=== PATIENT | male | born 1995 | race Caucasian/White ===

== ENCOUNTER 2018-02-24 23:09 | Emergency (ER) | payer MEDICAID ==
[~2018-02-24] VITALS: Ht 165.1 cm; Wt 72.6 kg
== END 2018-02-25 01:25 | disposition home or self-care (01) ==
LOC: ED 23:09
DX: E86.0 Dehydration (principal); F17.200 Nicotine dependence, unspecified, uncomplicated
CPT/HCPCS: 80048; 85025; 99284; J7030